=== PATIENT | female | born 2000 | race Caucasian/White ===

== ENCOUNTER 2020-05-03 10:19 | Emergency (ER) | payer BC ==
[~2020-05-03] VITALS: Ht 167.6 cm; Wt 59.0 kg
[2020-05-03 10:19] VITALS: BP 108/72
--- NOTE | 2020-05-03 10:19 | NUR ---
PATIENT ASSISTED FROM [facility] BED.
--- NOTE | 2020-05-03 10:23 | NUR ---
DR. BILLS IS EVALUATING PT AT BEDSIDE
--- NOTE | 2020-05-03 10:32 | NUR ---
19 YO F RODRIGO FROM HER JOB FOR C/C OF NEAR SYNCOPE EPISODE. PT STATES ASSOCIATED NAUSEA, LOSS OF HEARING/SIGHT. PT ALSO STATES SHE HAS A HEADACHE, 3/10 TO THE FRONT OF HER HEAD. PT DENIES LOSS OF CONSCIOUSNESS OR FALL. PT DENIES SOB, CHEST PAIN, ABDOMINAL PAIN, DIZZINESS, BLURRY VISION. PT STATES SHE DID NOT TAKE ANY MEDICATION PRIOR TO ARRIVAL. 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 LUNG SOUNDS CTA. RESPIRATIONS EVEN/UNLABORED. BED LOCKED IN LOWEST POSITION, SIDE RAILS X 1, CALL LIGHT IN REACH. PMH: SEIZURES(LAST ONE WAS 3 YEARS AGO) MEDS: DENIES NKA
[2020-05-03] MEDS ORDERED: ONDANSETRON 4 MG ODT PO ONE (10:35)
[2020-05-03] MEDS ORDERED: NACL 0.9% 1,000 ML IV ONE (10:35)
[2020-05-03 10:55] LABS: BASOPHILS # (AUTO) 0.1 K/uL (0.00-0.22); BASOPHILS % (AUTO) 1.6 % (0.0-2.0); EOSINOPHILS # (AUTO) 0.1 K/uL (0-0.4); EOSINOPHILS % (AUTO) 1.5 % (0.0-4.0); HEMATOCRIT 39.9 % (36-48); HEMOGLOBIN 13.5 g/dL (12.0-16.0); MEAN CORPUSCULAR HEMOGLOBIN 31 pg (27-31); MEAN CORPUSCULAR HGB CONC 34 g/dL (33-37); MEAN CORPUSCULAR VOLUME 90.9 fL (80-94); MONOCYTES # (AUTO) 0.3 K/uL (0.8-1.0); MONOCYTES % (AUTO) 6.2 % (1.7-9.3); NEUTROPHILS # (AUTO) 3.5 K/uL (1.8-7.7); NEUTROPHILS % (AUTO) 70.7 % (42.2-75.2); PLATELET COUNT (AUTO) 178 K/uL (140-450); RED BLOOD CELL COUNT(AUTO) 4.39 MIL/uL (4.20-5.40); RED CELL DISTRIBUTION WIDTH 12.8 % (11.6-13.7)
--- NOTE | 2020-05-03 10:58 | NUR ---
XRAY AT BEDSIDE
--- NOTE | 2020-05-03 11:07 | NUR ---
PT RESTING IN POSITION OF COMFORT. NO DISTRESS NOTED. EQUAL CHEST RISE AND FALL, RESPIRATIONS EVEN/UNLABORED. EARTH BORING MACHINE OPERATOR IN PLACE. BED LOCKED IN LOWEST POSITION, SIDE RAILS X1, CALL LIGHT IN REACH.
--- NOTE | 2020-05-03 11:08 | NUR ---
PT AMBULATED TO RESTROOM FOR URINE SAMPLE.
[2020-05-03 11:19] LABS: ALBUMIN 4.3 g/dL (3.4-5.0); ANION GAP 12.5 (8-16); CARBON DIOXIDE 24.4 mmol/L (21-32); CREATININE 0.9 mg/dL (0.6-1.3); MAGNESIUM 1.9 mg/dL (1.8-2.4); POTASSIUM 3.9 mmol/L (3.5-5.1)
--- NOTE | 2020-05-03 11:22 | NUR ---
LAB AT BEDSIDE
--- NOTE | 2020-05-03 11:22 | NUR ---
URINE SAMPLE COLLECTED FOR DIP AND PREG.
--- NOTE | 2020-05-03 11:24 | NUR ---
PT STATES PAIN AT IV SITE TO LEFT AC. NACL 0.9% BOLUS STOPPED D/T PAIN. 20G IV TO LEFT AC WITH GOOD BLOOD RETURN, HOWEVER, PT STATES PAIN AND "SWELLING" TO LEFT ARM. NO SWELLING NOTED AT THIS TIME. MEDICAL ONCOLOGIST ATTEMPTED TO ESTABLISH IV TO RIGHT ARM, UNSUCCESSFUL AT THIS TIME. PT PROVIDED WITH 3 CUPS OF WATER AT THIS TIME. DR. BILLS MADE AWARE.
--- NOTE | 2020-05-03 12:15 | NUR ---
PT RESTING IN POSITION OF COMFORT. NO DISTRESS NOTED. EQUAL CHEST RISE AND FALL, RESPIRATIONS EVEN/UNLABORED. QUENCHING CAR OPERATOR IN PLACE. BED LOCKED IN LOWEST POSITION, SIDE RAILS X1, CALL LIGHT IN REACH.
--- NOTE | 2020-05-03 12:25 | NUR ---
ORTHOSTATIC VITAL SIGNS PERFORMED AT BEDSIDE. NO DIZZINESS, HEADACHE, BLURRY VISION DURING TEST. DR. BILLS MADE AWARE OF ORTHOSTATIC V/S. PT PLACED BACK INTO POSITION OF COMFORT AFTER TEST. PATROL POLICE LIEUTENANT REMAINS IN PLACE. EQUAL CHEST RISE AND FALL, RESPIRATIONS EVEN/UNLABORED. BED LOCKED IN LOWEST POSITION, SIDE RAILS X 1, CALL LIGHT IN REACH.
[2020-05-03 12:35] VITALS: BP 109/69
--- NOTE | 2020-05-03 12:35 | NUR ---
Patient discharged with v/s stable. Written and verbal after care instructions given and explained. Patient alert, oriented and verbalized understanding of instructions. Ambulatory with steady gait. All questions addressed prior to discharge. ID band removed. Patient advised to follow up with PMD. Rx of ZOFRAN ODT given. Patient educated on indication of medication including possible reaction and side effects. Opportunity to ask questions provided and answered.
== END 2020-05-03 12:35 | disposition home or self-care (01) ==
LOC: MED 10:19
DX: R55 Syncope and collapse (principal)
CPT/HCPCS: 36415; 71045; 80053; 81002; 81025; 83735; 84484; 85025; 93005; 96360; 99285; J7030; Q0162